=== PATIENT | male | born 1955 | race Caucasian/White ===

== ENCOUNTER 2022-07-31 00:44 | Day surgery (SDC) | payer MEDICARE, SELFPAY ==
[2022-07-18 12:24] VITALS: BMI 30.4
--- NOTE | 2022-07-30 13:30 | PM.HPGS ---
History of Present Illness History of Present Illness Consent: Risks, benefits, and alternatives have been discussed and questions answered. Patient agrees to proceed with procedure. Chief complaint: other fecal abnormalities Narrative: Len Iverson is a 67 year old male referred for colon cancer screening. Review of Systems Review of Systems: All systems reviewed & are unremarkable except as noted in HPI and below PMFSH Social History Social History Smoking status: Never smoker Alcohol intake: current Alcohol use details: 2 drinks wine monthly Substance use type: does not use Living arrangements: with family Spiritual care concerns: No Meds Home Medications and Allergies Home Medications Medication Instructions Recorded Confirmed Type lisinopril 20 mg tablet 20 mg PO DAILY 07/18/22 07/31/22 History Allergies Allergy/AdvReac Type Severity Reaction Status Date / Time No Known Allergies Allergy Verified 07/31/22 11:59 Exam Const: General: alert Orientation/consciousness: patient oriented x3 Resp: Auscultation: clear to auscultation bilaterally Cardio: Rhythm: regular rhythm GI: GI Palp: Yes Soft to palpation and No Tenderness to palpation present (GI) Neuro: General: patient oriented x3 Assessment and Plan Assessment and plan (1) Colon cancer screening: Code(s): Z12.11 - Encounter for screening for malignant neoplasm of colon Status: Acute Assessment and Plan: Colonoscopy with possible biopsy or polypectomy or cautery or injection of substances.
[2022-07-31 12:00] VITALS: BP 147/91; PULSE 71; RESP 20; TEMP 36.4; O2SAT 100
--- NOTE | 2022-07-31 12:04 | WPDANESEPPF ---
Anes - Initial Pre Proc Eval Procedure: Operation Date: 07/31/22 13:30 Proposed Procedures p Colonoscopy - Grabiel Zazueta MD Date/Time: 07/31/22 12:04 Surgeon: Grabiel Zazueta MD Pre Op Diagnosis: other fecal abnormalities Patient Data Age: 67 Gender: M Height: 1.85 m Weight: 104.7 kg Last Vital Signs Temp 97.5 F L 07/31/22 12:00 Pulse 71 07/31/22 12:00 Resp 20 07/31/22 12:00 BP 147/91 H 07/31/22 12:00 Pulse Ox 100 07/31/22 12:00 O2 Del Method Room Air 07/31/22 12:00 Allergies Allergy/AdvReac Type Severity Reaction Status Date / Time No Known Allergies Allergy Verified 07/31/22 11:59 Home Medications Medication Instructions Recorded Confirmed Type lisinopril 20 mg tablet 20 mg PO DAILY 07/18/22 07/31/22 History Patient hx anesthesia problems: none Family hx anesthesia problems: none Results Review: All pre-operative results and documents have been reviewed as part of the pre-operative evaluation. [facility] Social History Social History Smoking status: Never smoker Alcohol intake: current Alcohol use details: 2 drinks wine monthly Substance use type: does not use Living arrangements: with family Spiritual care concerns: No Anes - Eval Final PreProcedure Day of Procedure 07/31/22 12:04 Patient weight: obese Heart: regular rate and rhythm Lungs: clear to auscultation Airway: Mallampati scale class II Neurological: alert and oriented Last oral intake: >/= 8 hours ASA classification: II Emergent: no Anesthetic plan: proceed Anesthesia type and monitoring: general GIVS and standard monitoring Results Review: All pre-operative results and documents have been reviewed as part of the pre-operative evaluation. Informed Consent: The patient's anesthetic plan and its attendant risks and benefits were discussed with the patient/family/POA. Questions were solicited and answers provided to the satisfaction of the patient/family/POA.
[2022-07-31] MEDS: LACTATED RINGERS 1,000 ML 150 ML IV CONT (12:06)
[2022-07-31 12:54] VITALS: BP 123/75; PULSE 68; RESP 20; O2SAT 96
[2022-07-31 13:04] VITALS: BP 128/71; PULSE 64; RESP 20; O2SAT 96
[2022-07-31 13:14] VITALS: BP 131/86; PULSE 66; RESP 20; O2SAT 97
--- NOTE | 2022-07-31 13:15 | SUR.PHASEII ---
Addendum entered by Misty Connell RN 07/31/22 13:37: 1335: UPON DISCHARGE, PT STATES FEELING BETTER, ABLE TO SPEAK MORE EASILY WITH SOME HOARSENESS. Original Note: PT AWAKE AND ALERT, COMPLAINING OF BURNING IN HIS THROAT, ALSO STATES DIFFICULTLY SPEAKING, ABLE TO WHISPER, ABHAY EDMONDSON AT BEDSIDE, OBTAINED ORDERS FOR PEPCID IV PER DR FINN, ABHAY EDMONDSON ADMINISTERED MEDICATION, PT STATES THIS HAPPENS AT HOME ROUTINELY AFTER LAYING DOWN FOR PERIODS OF TIME, PT ABLE TO CLEAR THROAT, NO MUCOUS PRODUCTION, SPOUSE AT BEDSIDE. DR HARDEN NOTIFIED, NO NEW ORDERS. PT AND SPOUSE OK WITH GOING HOME, STATES THEY WILL FOLLOW UP IF SYMPTOMS CONTINUE.
[2022-07-31] MEDS: FAMOTIDINE 20 MG/2 ML VIAL IV PUSH (13:18)
== END 2022-07-31 13:35 | disposition home or self-care (01) ==
PROVIDERS: PCP Internal Medicine; Visit Provider Internal Medicine Gastroenterology
PROC: 0DJD8ZZ Inspection of Lower Intestinal Tract, Via Natural or Artificial Opening Endoscopic (ICD-10-PCS; CPT 45378; principal; 2022-07-31 13:30)
DX: Z12.11 Encounter for screening for malignant neoplasm of colon (principal); K62.1 Rectal polyp; K57.30 Diverticulosis of large intestine without perforation or abscess without bleeding; R19.5 Other fecal abnormalities; E66.9 Obesity, unspecified; Z68.30 Body mass index [BMI] 30.0-30.9, adult
CPT/HCPCS: 45380; 88305; J2704; J7120

== ENCOUNTER 2024-10-21 14:29 | Outpatient (CLI) | payer MEDICARE, SELFPAY ==
--- NOTE | ~2024-10-21 | CT_ITS ---
CT of the Abdomen and Pelvis: Indication: Hematuria Technique: 2.5 mm axial scans were obtained through the abdomen and pelvis following intravenous adm inistration of 100 cc of Omnipaque 350. Dose reduction technique was used on this scan by utilizing a utomated exposure control and iterative reconstruction technique. The dose-length product (DLP) was 1 020.43 mGy-cm. Findings: Scans through the lung bases are unremarkable. The liver, spleen, pancreas, gallbladder, adrenals and kidneys are within normal limits. No evidence of aortic aneurysm. No lymphadenopathy. No bowel obstruction or bowel wall thickening. There is no evidence to suggest acute appendicitis. Images through the pelvis were performed. Urinary bladder grossly unremarkable. Prostate gland is enl arged. No pelvic mass seen. No ascites. Impression: Enlarged prostate gland. No other significant findings identified. Collapsed urinary bladder somewhat limits evaluation. Reviewed, dictated and finalized at [facility]. Impression: Enlarged prostate gland. No other significant findings identified. Collapsed urinary bladder somewhat li mits evaluation.
--- OUTSIDE RECORDS SUMMARY | 2024-10-21 14:35 | XMS_ITS | Referral Summary ---
Author Organization [facility] Address [address] [place] [address] Care Team Providers Care Pantry Worker Name Role Phone Len Chiu MD Unavailable [phone] Cristofer Lock MD Primary Care Provider Encounters Date Type Department Care Team Description 10/18/2024 Results Follow-Up [facility] at [address] [phone] Yudelka Rogel PA Urine culture Urine, clean voided 10/17/2024 9:57 AM CDT - 10/17/2024 11:59 PM CDT Hospital Encounter [address] [address] Burning with urination Discharge Disposition: Discharge to home or self care 10/17/2024 9:45 AM CDT Office Visit [facility] at [address] [phone] Melissa Meza NP Burning with urination (Primary Dx) 09/17/2024 Telephone [facility] Sports Medicine [address] [facility] [address] [address] Goldie White PA 09/14/2024 8:30 AM CDT Ancillary Procedure [facility] Imaging at [address] [phone] Acute pain of both knees 09/14/2024 8:25 AM CDT Ancillary Procedure [facility] [place] [address] [place] [phone] Acute pain of both knees 09/14/2024 8:30 AM CDT Office Visit [facility] Orthopedic and Sports Medicine [address] [place] [phone] Goldie White PA Chronic pain of both knees (Primary Dx); Primary osteoarthritis of both knees from Last 3 Months Allergies No known active allergies Medications lisinopriL (PRINIVIL,ZESTR IL) 20 mg tablet 1 tablet (20 mg total) daily Active aspirin 325 mg enteric coated tablet 1 tablet (325 mg total) nightly Active rosuvastatin (CRESTOR) 10 mg tablet Take 1 tablet (10 mg total) by mouth daily Active cephalexin (KEFLEX) 500 mg capsuleIndicati ons:Urinary Tract/Genitouri nary Infection Take 1 capsule (500 mg total) by mouth 2 (two) times a day for 5 days 10 capsule 10/17/2024 5 Active Active Problems Problem Noted Date Diagnosed Date Hyperlipidemia LDL goal <100 04/27/2024 Basal cell carcinoma (BCC) of skin of nose 02/07 PAC (premature atrial contraction) 12/27/2022 Obesity (BMI 30.0-34.9) 12/27/2022 Essential (primary) hypertension 12/27/2022 Other atrophic disorders of skin 10/08/2021 Overview (10/08/2021): Added automatically from request for surgery [id number] Lesion of skin of cheek 10/08/2021 Overview (10/08/2021): Added automatically from request for surgery [id number] Skin lesion of left arm 10/08/2021 Overview (10/08/2021): Added automatically from request for surgery [id number] Skin lesion of right leg 10/08/2021 Overview (10/08/2021): Added automatically from request for surgery [id number] Neoplasm of uncertain behavior of skin Overview (09/29/2020): Added automatically from request for surgery [id number] Social History Tobacco Use Types Packs/Day Years Used Date Smoking Tobacco: Never Cigarettes Passive Smoke Exposure: Past Smokeless Tobacco: Never Tobacco Cessation:Counseling Given: Not Answered AUDIT-C Answer Date Recorded Q1: How often do you have a drink containing alc ohol? Monthly or less 02/11/2023 Q2: How many drinks containi ng alcohol do you have on a typical day when you are drinking? 1 or 2 02/11/2023 Q3: How often do you have si x or more drinks on one occasion? Never 02/11/2023 Personal Safety Answer Date Recorded Have you ever been in or are you currently in a harmful physical or emotional relationship or is someone making you feel afraid or unsafe? 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 Gender Identity Not on file Sexual Orientation Not on file Last Filed Vital Signs Vital Sign Reading Time Taken Comments Blood Pressure 115/74 10/17/2024 9:37 AM CDT Pulse 85 10/17/2024 9:37 AM CDT Temperature 36.9 C (98.4 F) 10/17/2024 9:37 AM CDT Respiratory Rate 18 10/17/2024 9:37 AM CDT Oxygen Saturation 98% 10/17/2024 9:37 AM CDT Inhaled Oxygen Concentration - - Weight 108.5 kg (239 lb 3.2 oz) 10/17/2024 9:37 AM CDT Height 182.9 cm (6') 10/17/2024 9:37 AM CDT Body Mass Index 32.44 10/17/2024 9:37 AM CDT Plan of Treatment Not on file Procedures Procedure Name Priority Date/Time Associated Diagnosis Comments URINE CULTURE Routine 10/17/2024 9:57 AM CDT Burning with urination POCT URINALYSIS DIPSTICK Routine 10/17/2024 9:46 AM CDT Burning with urination XR PELVIS 1 OR 2 VIEWS Schedule Routine, Read Routine (OP Routine) 09/14/2024 8:35 AM CDT Acute pain of both knees XR KNEE BILATERAL 4 OR MORE VIEWS Schedule Routine, Read Routine (OP Routine) 09/14/2024 8:35 AM CDT Acute pain of both knees LARGE JOINT ARTHROCENTESIS Routine 09/14/2024 8:30 AM CDT Chronic pain of both knees Primary osteoarthritis of both knees from Last 3 Months Results * Urine culture Urine, clean voided (10/17/2024 9:57 AM CDT) Report Final Report: Less than 100,000 colonies/mL (clinically insignificant growth based on current clinical standards) Comment:Testing performed by : [facility], [address] [place]., [address] Organism (CLINICALLY INSIGNIFICANT GROWTH TALYA Urine, clean voided 10/17/2024 9:57 AM CDT 10/17/2024 4:00 PM CDT Narrative TALYA - 10/18/2024 4:55 PM CDT Please run sensitivity. Testing performed by [facility] Microbiology Laboratory ([phone]) us Melissa Meza NP LAB MICROBIOLOGY - GENERAL ORD ERABLES Final Result [facility] [address] [address] Department [place] [address] * (ABNORMAL) POCT urinalysis dipstick (10/17/2024 9:46 AM CDT) Color, Urine, POC Dark Yellow Clarity, ur, POC Cloudy(A) Clear Glucose, ur, POC Negative Negative Bilirubin, ur, POC Small(A) Negative Ketones, ur, POC 15.(A) Negative Specific [place], POC 1.030 1.003 - 1.030 Blood, ur, POC Non-hemolyze d, moderate(A) Negative pH, ur, POC 6.0 5.0 - 8.0 Protein, ur, POC 100.(A) Negative Urobilinogen, urine, POC 0.2 0.2 - 1.0 mg/dL Nitrite, ur, POC Negative Negative Leukocytes, ur, POC Negative Negative Lot Number [id number] Urine 10/17/2024 9:46 AM CDT Melissa Meza NP POINT OF CARE TEST ORDERABLES Final Result * XR Pelvis 1 or 2 Views (09/14/2024 8:35 AM CDT) Anatomical Region Laterality Modality Body, Pelvis N/A Digital Radiogra phy Narrative 10/08/2024 7:17 AM CDT X-ray of the pelvis viewed and interpreted. There is no evidence of fracture, subluxation, or bony abnormality. Degenerative changes seen of the bilateral femoral acetabular joints with joint space narrowing and osteophyte formation. Goldie SHINE IMG XR PROCEDURES Final Result * XR Knee Bilateral 4 or More Views (09/14/2024 8:35 AM CDT) Anatomical Region Laterality Modality Lower Extremities, Knee Digital Radiography Narrative 10/08/2024 7:18 AM CDT Radiographs of the bilateral knees reviewed interpreted. No acute fractures or destructive osseous lesions. Tricompartmental degenerative changes noted with windswept deformity. [id number]-rv-[id number] changes medial compartment right knee with varus deformity and iufk-ew-dpaw changes lateral compartment of the left knee with valgus deformity. Goldie SHINE IMG XR PROCEDURES Final Result from Last 3 Months Insurance [employer] MEDICARE Care Teams Pantry Worker Relationship Specialty Start Date End Date Cristofer Lock MD [address] [place] [address] PCP - General Internal Medicine 12/25/22 Len Chiu MD Consulting Physician Plastic Surgery 10/10/20
--- OUTSIDE RECORDS SUMMARY | 2024-10-21 14:35 | XMS_ITS | Clinical Summary ---
Author Organization [facility] Address [address] [place] [address] Care Team Providers Care Director Of Primary Care Name Role Phone Len Chiu MD Unavailable [phone] Cristofer Lock MD Primary Care Provider Allergies No known active allergies Medications lisinopriL [...] (10/08/2021): Added automatically from request for surgery [id number] Lesion of skin of cheek 10/08/2021 Overview (10/08/2021): Added automatically from request for surgery [id number] Skin lesion of left arm 10/08/2021 Overview (10/08/2021): Added automatically from request for surgery [id number] Skin lesion of right leg 10/08/2021 Overview (10/08/2021): Added automatically from request for surgery [id number] Neoplasm of uncertain behavior of skin Overview (09/29/2020): Added automatically from request for surgery [id number] Encounters Date Type Department Care Team Description 10/18/2024 Results Follow-Up [facility] at [address] [phone] Yudelka Rogel PA Urine culture Urine, clean voided 10/17/2024 9:57 AM CDT - 10/17/2024 11:59 PM CDT Hospital Encounter [address] [address] Burning with urination Discharge Disposition: Discharge to home or self care 10/17/2024 9:45 AM CDT Office Visit [facility] at [address] [phone] Melissa Meza NP Burning with urination (Primary Dx) 09/17/2024 Telephone [facility] Orthopedics and Sports Medicine [address] [facility] [address] [place] [phone] Goldie White PA 09/14/2024 8:30 AM CDT Ancillary Procedure [facility] Imaging at [address] [phone] Acute pain of both knees 09/14/2024 8:30 AM CDT Office Visit [facility] Orthopedic [facility] Sports Medicine [address] [place] [phone] Goldie White PA Chronic pain of both knees (Primary Dx); Primary osteoarthritis of both knees 09/14/2024 8:25 AM CDT Ancillary Procedure [facility] Imaging at [address] [phone] Acute pain of both knees from Last 3 Months Surgical History Surgery Date Site/Laterality Comments SKIN LESION EXCISION 10/10/2020 Excision skin lesion back SKIN LESION EXCISION 10/10/2020 Excision skin lesion upper neck SKIN LESION EXCISION 10/10/2020 Excision skin lesion lower neck SKIN LESION EXCISION 10/10/2020 Right Excision skin lesion right arm KNEE ARTHROSCOPY W/ LATERAL RELEASE knee 1983 Right VASECTOMY 1977 Medical History Medical History Date Comments Cancer (HCC) basal cell Hypertension lisinopril 20 mg daily Family History Medical History Relation Name Comments Hypertension Brother 1 Hypertension Brother 2 Esophageal cancer Brother 3 liver faiure Brother 4 Hypertension Father Hypertension Mother Relation Name Status Comments Brother 1 Alive Brother 2 Alive Brother 3 Brother 4 Father Mother Sister 1 Alive Sister 2 Sister 3 Social History Tobacco Use Types Packs/Day Years [...] on file 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 Gender Identity Not on file Sexual Orientation Not on file Obstetrics History Last Filed Vital Signs Vital Sign Reading [...] 10/17/2024 9:37 AM CDT Plan of Treatment Health Maintenance Due Date Last Done Comments Colon Cancer Screening-Colonoscopy 1955 Depression Screening 1955 Hepatitis C Screening 1953 Hepatitis B Screening 1971 Zoster Vaccine (1 of 2) 2003 Well Visit 65+ 2018 Pneumococcal vaccine 65+ (2 of 2 - PPSV23) 01/28/2019 01/28/2018 DTaP/Tdap/Td Vaccine (2 - Td or Tdap) 02/22/2023 02/22/2013 Fall Risk Assessment 02/26/2024 02/25/2023 Influenza Vaccine (#1) 2024 , 02/22/2019, 01/28/2018, Additional history exists Procedures Procedure Name Priority Date/Time Associated Diagnosis [...] current clinical standards) Comment:Testing performed by : [facility], [address] [facility], [place]., [address] Organism (CLINICALLY INSIGNIFICANT GROWTH TALYA TRAN Urine, clean voided 10/17/2024 9:57 AM CDT 10/17/2024 4:00 PM CDT Narrative TALYA TRAN - 10/18/2024 4:55 PM CDT Please run sensitivity. Testing performed by [facility] Microbiology Laboratory ([phone]) Melissa Meza NP LAB MICROBIOLOGY - GENERAL ORD ERABLES Final Result TALYA TRAN [address] [address] Department [place] [address] * (ABNORMAL) POCT urinalysis dipstick (10/17/2024 9:46 AM CDT) Color, Urine, POC Dark Yellow Clarity, ur, POC Cloudy(A) Clear Glucose, ur, POC Negative Negative Bilirubin, ur, POC Small(A) Negative Ketones, ur, POC 15.(A) Negative Specific [place], POC 1.030 1.003 - 1.030 Blood, ur, POC Non-hemolyze d, moderate(A) Negative pH, ur, POC 6.0 5.0 - 8.0 Protein, ur, POC 100.(A) Negative Urobilinogen, urine, POC 0.2 0.2 - 1.0 mg/dL Nitrite, ur, POC Negative Negative Leukocytes, ur, POC Negative Negative Lot Number [id number] Urine 10/17/2024 9:46 AM CDT us Melissa Meza NP POINT OF CARE TEST [...] Tricompartmental degenerative changes noted with windswept deformity. Iffu-qe-omkn changes medial compartment right knee with varus deformity and gggd-bp-fgjp changes lateral compartment of the left knee with valgus deformity. Goldie SHINE IMG XR PROCEDURES Final Result from Last 3 Months Insurance [facility] MEDICARE AET[employer] MEDICARE Care Teams Director Of Primary Care Relationship Specialty Start Date End Date Cristofer Lock MD [address] [facility] [address] [place] [address] PCP - General Internal Medicine 12/25/22 Len Chiu MD Consulting Physician Plastic Surgery 10/10/20
--- OUTSIDE RECORDS SUMMARY | 2024-10-21 14:35 | XMS_ITS | Encounter Summary ---
Author Organization [facility] Address [address] [facility] [place] [address] Care Team Providers Care Panel Sewer Name Role Phone Cristofer Lock MD Primary Care Provider Encounter Details Date Type Department Care Team (Late st Contact Info) Description 12/05/2023 Lab Requisition [facility] [address] [facility] [place] [phone] Kirti Ruby, PA [address] [place] [address] Neoplasm of uncertain behavior of skin Social History Tobacco Use Types Packs/Day Years Used Date Smoking Tobacco: Never Assessed Sex and Gender Information Value Date Recorded Sex Assigned at Not on file Legal Sex Male 11:09 AM CDT Gender Identity Not on file Sexual Orientation Not on file documented as of this encounter Plan of Treatment Not on file documented as of this encounter Visit Diagnoses Diagnosis Neoplasm of uncertain behavior of skin documented in this encounter Care Teams Panel Sewer Relationship Specialty Start Date End Date Cristofer Lock MD [address] [place] [phone] PCP - General 08/14/22 documented as of this encounter
--- OUTSIDE RECORDS SUMMARY | 2024-10-21 14:35 | XMS_ITS | Clinical Summary ---
Author Organization [facility] Address [address] [place] [address] Care Team Providers Care Machine Stone Polisher Name Role Phone Cristofer Lock MD Primary Care Provider Source Comments [facility],non-[facility] Affiliates and Associated Physician Practices is amultiple site organization consisting of ambulatory clinics and hospital sitesin [place], [place], [place] and [place]. This disclosure is being madepursuant to the Care Everywhere program and may not contain all information available regarding this patient. Last updated 18.[facility] [employer] Social History Tobacco Use Types Packs/Day Years Used Date Smoking Tobacco: Never Assessed Sex and Gender Information Value Date Recorded Sex Assigned at Not on file Legal Sex Male 11:09 AM CDT Gender Identity Not on file Sexual Orientation Not on file Plan of Treatment Health Maintenance Due Date Last Done Comments COLOGUARD (AGES 45-75) - COL ON CA SCREENING 1955 COLON MONITORING 1953 COLONOSCOPY - COLON CA SCREENING 1953 CT COLONOGRAPHY - COLON CA SCREENING 1955 Colorectal Cancer Screening 1953 FIT - COLON CA SCREENING 1953 FLEX SIG - COLON CA SCREENING 1953 LIPID TESTING 1953 HEPATITIS C SCREENING 01/19/1971 DTAP/TDAP/TD VACCINES (1 - Tdap) 01/24/1972 PNEUMOCOCCAL VACCINE 50+ (1 of 1 - PCV) 2003 ZOSTER VACCINE (1 of 2) 2003 COVID-19 VACCINE ( - 2023-2 5 season) 2023 DEPRESSION SCREENING 04/14/2024 MEDICARE AWV CALENDAR YEAR 2024 INFLUENZA VACCINE (#1) 2024 Respiratory Syncytial Virus (RSV) Vaccine Pt: or over 60 yrs (1 - 1-dose 75+ series) 01/24/2028 HEPATITIS B VACCINE Aged Out No longe r eligible based on patient's age to complete this topic HIB VACCINE Aged Out No longer eligi ble based on patient's age to complete this topic HPV VACCINE Aged Out No longer eligi ble based on patient's age to complete this topic MENINGOCOCCAL (Group B) VACC INE SHARED DECISION-MAKING Aged Out No longer eligibl e based on patient's age to complete this topic MENINGOCOCCAL GROUPS A/C/Y/W VACCINE Aged Out No longer eligible b ased on patient's age to complete this topic Insurance AETNA MEDICARE ADV Care Teams Machine Stone Polisher Relationship Specialty Start Date End Date Cristofer Lock MD [address] [place] [address] [address] [place] [address] PCP - General 08/14/22
--- OUTSIDE RECORDS SUMMARY | 2024-10-21 14:35 | XMS_ITS | Encounter Summary ---
Author Organization [facility] Care Team Providers Care Field Supervisor Name Role Phone Cristofer Lock MD Primary Care Provider Len Chiu MD Unavailable [phone] Cristofer Lock MD Primary Care Provider Encounter Details Date Type Department Care Team (Latest Contact Info) Description 09/13/2016 Orders Only [facility] ProviderTucker MD [address] [place] [id number] Social History Tobacco Use Types Packs/Day Years Used Date Smoking Tobacco: Never Assessed Sex and Gender Information Value Date Recorded Sex Assigned at Not on file 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 Historical Provider Final Res ult * PROCEDURE - RESULT (08/23/2016 12:00 AM CDT) Narrative 08/23/2016 12:00 AM CDT Ordered by an unspecified provider. us Historical Provider Final Res ult documented in this encounter Visit Diagnoses Not on filedocumented in this encounter Care Teams Field Supervisor Relationship Specialty Start Date End Date Cristofer Lock MD [address] [address] PCP - General Internal Medicine 09/28/20 12/24/22 Cristofer Lock MD [address] [address] PCP - General Internal Medicine 12/25/22 Len Chiu MD [address] [address] Consulting Physician Plastic Surgery 10/10/20 documented as of this encounter
--- OUTSIDE RECORDS SUMMARY | 2024-10-21 14:35 | XMS_ITS | Encounter Summary ---
Author Organization [facility] Address [address] [place] [address] Care Team Providers Care Software Engineer Kernel Name Role Phone Len Chiu MD Unavailable [phone] Cristofer Lock MD Primary Care Provider Encounter Details Date Type Department Care Team (Late st Contact Info) Description 10/18/2024 Results Follow-Up [facility] Con[facility]ient Care at [address] [address] Yudelka Rogel PA [address] [place] [address] [address] [place] [address] Urine culture Urine, clean voided Social History Tobacco Use Types Packs/Day Years Used Date Smoking Tobacco: Never Cigarettes Passive Smoke Exposure: Past Smokeless Tobacco: Never AUDIT-C Answer Date Recorded Q1: How often [...] on file 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
--- OUTSIDE RECORDS SUMMARY | 2024-10-21 14:35 | XMS_ITS | Encounter Summary ---
Author Organization [facility] Address [address] [place] [address] Care Team Providers Care Commission For [employer] Blind Director Name Role Phone Cristofer Lock MD Primary Care Provider [phone] Encounter Details Date Type Department Care Team (Late st Contact Info) Description 12/05/2023 Lab Requisition [facility] - DermPath Lab [address] [place] [phone] William Moreno MD [facility] DERMATOLOGY [address] [place] [phone] Neoplasm of uncertain behavior of skin Social [...] Procedure Name Priority Date/Time Associated Diagnosis Comments DERMATOPATHOLOGY Routine 12/05/2023 12:0 0 AM CDT Neoplasm of uncertain behavior of skin documented in this encounter Results * DERMATOPATHOLOGY (12/05/2023 12:00 AM CDT) Case Report Dermatopathology Report Case: [id number] Authorizing Provider: William Moreno MD Collected: 12/05/2023 12:00 AM Ordering Location: [facility] - Received: 12/08/2023 10:57 AM DermPath Lab Pathologist: Sridevi Avery MD Specimens: A) - Skin, left nasolabial fold B) - Skin, right posterior upper arm 1:04 PM T DERMATOPATHOLOGY LABORATORY Final Diagnosis Specimen A. 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 SKIN, right posterior upper arm: BASAL CELL CARCINOMA, NODULAR TYPE (C44.612) 1:04 PM CDT DERMATOPATHOLOGY LABORATORY at 1304 CDT Clinical History A-B: Neoplasm of uncertain behavior vs BCC. 1:04 PM CDT DERMATOPATHOLOGY LABORATORY Gross Description Specimen A: Received is one formalin filled container labeled with the patient's name and designated left nasolabial fold. The specimen consists of a shave biopsy measuring 6x5x2 mm. Jar 0. Specimen B: Received is one formalin filled container labeled with the patient's name and designated right posterior upper arm. The specimen consists of a shave biopsy measuring 78f95p6 mm. Jar 0. 1:04 PM CDT DERMATOPATHOLOGY LABORATORY Microscopic Description Specimen A. SKIN, left nasolabial fold: Within the dermis there are aggregates of basaloid cells with a high nuclear to cytoplasmic ratio and peripheral palisading. Specimen B. SKIN, right posterior upper arm: Within the dermis there are aggregates of basaloid cells with a high nuclear to cytoplasmic ratio and peripheral palisading. 1:04 PM T DERMATOPATHOLOGY LABORATORY Disclaimer An external and internal positive and negative controls are appropriate for the histochemical, immunohistochemical and immunofluorescence stain(s) in this case (if any), except where stated explicitly. The performance characteristics of the stain(s) cited in this report were developed and its performance characteristic determined by the Dermatopathology Laboratory at [facility], directed by Dr. Rebekah Peters. These tests need not be, and therefore are not, approved by the [place] Food and Drug Administration. The tests are used for clinical purposes. Billing Codes Specimen Charges Stain Charges 21221 63395 1 1 1:04 PM CDT DERMATOPATHOLOGY LABORATORY Embedded Images 1:04 PM CDT DERMATOPATHOLOGY LABORATORY Pathology/Cytology TISSUE SPECIMEN FROM SKIN / Unknown 12/05/2023 12/08/2023 10:57 AM CDT Miscellaneous samples (specimen) TISSUE SPECIMEN FROM SKIN / Unknown 12/05/2023 12/08/2023 10:57 AM CDT us William Moreno MD LAB - PATHOLOGY/CYTOLOGY AMYE RICHIE Final Result DERMATOPATHOLOGY LABORATORY [facility] - Department of Dermatology [facility] [address] [place] [address], [address] [phone] documented in this encounter Visit Diagnoses Diagnosis Neoplasm of uncertain behavior of skin documented in this encounter Care Teams Commission For [employer] Blind Director Relationship Specialty Start Date End Date Cristofer Lock MD [facility] [phone] PCP - General 08/14/22 documented as of this encounter
[2024-10-21 14:58] LABS: Estimated Glomerular Filt Rate 50
== END 2024-10-21 14:30 | disposition home or self-care (01) ==
PROVIDERS: PCP Internal Medicine; Visit Provider Internal Medicine
DX: N40.0 Benign prostatic hyperplasia without lower urinary tract symptoms (principal); N32.89 Other specified disorders of bladder; R31.29 Other microscopic hematuria
CPT/HCPCS: 74177; Q9967

== ENCOUNTER 2025-03-24 01:16 | Day surgery (SDC) | payer MEDICARE, SELFPAY ==
[2025-03-23 12:28] VITALS: BMI 31.1
[2025-03-24] VITALS (14 sets, daily range): BP systolic 101–137; BP diastolic 58–87; PULSE 47–70; RESP 15–20; TEMP 36.1; O2SAT 96–100; BMI 29.9
--- OUTSIDE RECORDS SUMMARY | 2025-03-24 01:18 | XMS_ITS | Clinical Summary ---
Author Organization [facility] Address [address] [place] [address] Care Team Providers Care Heavy Rail Train Operator Name Role Phone Cristofer Lock MD Primary Care Provider [phone] Source Comments [facility],non-[facility] Affiliates and Associated Physician Practices is amultiple site organization consisting of ambulatory clinics and hospital sitesin [place], [place] and [place]. This disclosure is being madepursuant to the Care Everywhere program and may not contain all information available regarding this patient. Last updated 18.[employer] Social History Tobacco Use Types Packs/Day Years [...] 2003 ZOSTER VACCINE (1 of 2) 2003 DEPRESSION SCREENING 04/14/2024 MEDICARE AWV CALENDAR YEAR 2024 COVID-19 VACCINE ( - 2024-2 6 season) 2024 INFLUENZA VACCINE (#1) 2024 Respiratory Syncytial [...] topic Insurance [employer] MEDICARE ADV Care Teams Heavy Rail Train Operator Relationship Specialty Start Date End Date Cristofer Lock MD [address] [place] [address] [address] [place] [address] PCP - General 08/14/22
--- OUTSIDE RECORDS SUMMARY | 2025-03-24 01:18 | XMS_ITS | Encounter Summary ---
Author Organization [facility] Care Team Providers Care Heat Welder Plastics Name Role Phone Cristofer Lock MD Primary Care Provider Len Chiu MD Unavailable [phone] Cristofer Lock MD Primary Care Provider Alex Kruse OT Unavailable Unavailable Encounter Details Date Type Department Care Team (Latest Contact Info) Description 09/13/2016 Orders Only [facility] ProviderTucker MD [address] [place] [address] Social History Tobacco Use Types Packs/Day Years Used Date Smoking Tobacco: Never Assessed Sex and Gender Information Value Date Recorded Sex Assigned at Not on file 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
--- OUTSIDE RECORDS SUMMARY | 2025-03-24 01:18 | XMS_ITS | Encounter Summary ---
Author Organization [facility] Address [address] [place] [address] Care Team Providers Care Reclamation Worker Name Role Phone Len Chiu MD Unavailable Cristofer Lock MD Primary Care Provider Alex Kruse OT Unavailable Unavailable Encounter Details Date Type Department Care Team (Latest Contact Info) Description 03/09/2025 Results Follow-Up [facility] Cardiology [address] [place] [address] Vinny Rosado MD [address] [facility] [address] [facility] [address] [place] [address] Transthoracic Echo (TTE) Complete W Doppler/CF, NM MPI SPECT (Rest and/or Stress) Multiple Studies Social History Tobacco Use Types Packs/Day Years Used Date Smoking Tobacco: Never Passive Smoke Exposure: Past Smokeless Tobacco: Never Alcohol Use Standard Drinks/Week Comments Never 0 (1 standard drink = 0.6 oz pur e alcohol) AUDIT-C Answer Date Recorded Q1: How often do you have a drink containing alcohol? Never 03/09/2025 Q2: How many drinks containi ng alcohol do you have on a typical day when you are drinking? Patient does not drink Q3: How often do you have si x or more drinks on one occasion? Never 03/09/2025 Personal Safety Answer Date Recorded Have you ever been in or are you currently in a harmful physical or emotional relationship or is someone making you feel afraid or unsafe? 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 Never 03/09/2025 9:13 AM Whitney Vazquez RN Q2: How many drinks containing alcohol do you have on a typical day when you are drinking? Patient does not drink 03/09/2025 9:13 AM Whitney Vazquez RN Q3: How often do you have six or more drinks on one occasion? Never 03/09/2025 9:13 AM Whitney Vazquez RN documented as of this encounter Plan of Treatment Not on file documented as of this encounter Visit Diagnoses Not on filedocumented in this encounter Care Teams Reclamation Worker Relationship Specialty Start Date End Date Cristofer Lock MD [address] [facility] [address] [place] [address] PCP - General Internal Medicine 12/25/22 Len Chiu MD Consulting Physician Plastic Surgery 10/10/20 Alex Kruse OT Occupational Therapist Occupational Therapy 03/02/25 documented as of this encounter
--- OUTSIDE RECORDS SUMMARY | 2025-03-24 01:18 | XMS_ITS | Encounter Summary ---
Author Organization [facility] Address [address] [place] [address] Care Team Providers Care Crude Oil Driver Name Role Phone Cristofer Lock MD Primary Care Provider [phone] Encounter Details Date Type Department Care Team (Late st Contact Info) Description 12/05/2023 Lab Requisition [facility] - DermPath Lab [address] [facility] [place] [id number] Kirti Ruby, PA [address] [place] [address] Neoplasm of uncertain behavior of skin Social [...] skin documented in this encounter Care Teams Crude Oil Driver Relationship Specialty Start Date End Date Cristofer Lock MD [address] [place] [phone] PCP - General 08/14/22 documented as of this encounter
--- OUTSIDE RECORDS SUMMARY | 2025-03-24 01:18 | XMS_ITS | Clinical Summary ---
Author Organization [facility] Address [address] [place] [address] Care Team Providers Care Optometric Technologist Name Role Phone Len Chiu MD Unavailable [phone] Cristofer Lock MD Primary Care Provider Alex Kruse OT Unavailable Unavailable Allergies No known active allergies Medications lisinopriL (PRINIVIL,ZESTR IL) 20 mg tablet 1 tablet (20 mg total) daily Active aspirin 325 mg enteric coated tablet Take 2 tablets (650 mg total) by mouth nightly Active rosuvastatin (CRESTOR) 10 mg tablet Take 1 tablet (10 mg total) by mouth daily Active Active Problems Problem Noted Date Diagnosed Date PVC (premature ventricular contraction) 03/04/20 25 Pre-operative cardiovascular examination 025 PAF (paroxysmal atrial fibrillation) 03/04/2025 Post-traumatic osteoarthritis of left knee 02/17 Hyperlipidemia LDL goal <100 04/27/2024 Basal cell carcinoma (BCC) of skin of nose 02/07 PAC (premature atrial contraction) 12/27/2022 Obesity (BMI 30.0-34.9) 12/27/2022 Essential (primary) hypertension 12/27/2022 Other atrophic disorders of skin 10/08/2021 Overview (10/08/2021): Added automatically from request for surgery [id number] Lesion of skin of cheek 10/08/2021 Overview (10/08/2021): Added automatically from request for surgery [id number] Skin lesion of left arm 10/08/2021 Overview (10/08/2021): Added automatically from request for surgery [id number] Skin lesion of right leg 10/08/2021 Overview (10/08/2021): Added automatically from request for surgery [id number] Neoplasm of uncertain behavior of skin Overview (09/29/2020): Added automatically from request for surgery [id number] Encounters Date Type Department Care Team Description 03/09/2025 Telephone [facility] Cardiology [address] [place] [address] [place] [phone] Chepe Frausto MD 03/09/2025 Results Follow-Up [place] [address] [place] [phone] Chepe Frausto MD Transthoracic Echo (TTE) Complete W Doppler/CF, NM MPI SPECT (Rest and/or Stress) Multiple Studies 03/08/2025 10:15 AM [employer]CH[employer]ING AGENT Ancillary Procedure [facility] Cardiology at [address] [place] [address] PAF (paroxysmal atrial fibrillation); Pre-operative cardiovascular examination; PVC (premature ventricular contraction) 03/04/2025 2:00 PM [employer]CH[employer]ING AGENT Ancillary Procedure [facility] Cardiology [address] [place] [address] [place] [phone] PAF (paroxysmal atrial fibrillation); Essential (primary) hypertension 03/04/2025 11:30 AM [employer]CH[employer]ING AGENT Office Visit [facility] Cardiology [address] [place] [address] [place] [phone] Chepe Frausto MD PAF (paroxysmal atrial fibrillation) (Primary Dx); Pre-operative cardiovascular examination; Hyperlipidemia LDL goal <100; Essential (primary) hypertension; PVC (premature ventricular contraction) 02/18/2025 Orders Only [facility] Orthopedics and Sports Medicine [address], [place] [phone] Rajinder Whittaker MD Post-traumatic osteoarthritis of left knee (Primary Dx) 02/14/2025 9:45 AM [employer] FOR [employer]ALE PURCHASING AGENT Lab [facility] [address] [place] [address] Pre-operative exam 02/14/2025 9:30 AM [employer]ALE PURCHASING AGENT - 02/14/2025 11:59 PM [employer] PURCHASING AGENT Hospital Encounter [facility] Cardiology [address] [place] [address] Pre-operative exam Discharge Disposition: Discharge to home or self care 02/14/2025 9:29 AM [employer]CH[employer]ING AGENT - 02/14/2025 11:59 PM [employer] PURCHASING AGENT Hospital Encounter [facility] Imaging [facility] [address] [place] [address] Pre-operative exam Discharge Disposition: Discharge to home or self care from Last 3 Months Surgical History Surgery Date Site/Laterality Comments SKIN LESION EXCISION 10/10/2020 Excision skin lesion back SKIN LESION EXCISION 10/10/2020 Excision skin lesion upper neck SKIN LESION EXCISION 10/10/2020 Excision skin lesion lower neck SKIN LESION EXCISION 10/10/2020 Right Excision skin lesion right arm KNEE ARTHROSCOPY W/ LATERAL RELEASE knee 1983 Right VASECTOMY 1976 COLONOSCOPY ELBOW FRACTURE SURGERY Right as a child Medical History Medical History Date Comments Cancer (HCC) basal cell Hypertension lisinopril 20 mg daily GERD (gastroesophageal reflux disease) Atrial fibrillation (HCC) Hyperlipidemia Family History Medical History Relation Name Comments [...] Tobacco: Never Tobacco Cessation:Counseling Given: Not Answered Alcohol Use Standard Drinks/Week Comments Never 0 [...] on file Legal Sex Male 8:31 PM [employer]CH[employer]ING [employer]ENT Gender Identity Not on file Sexual Orientation Not on file Last Filed Vital Signs Vital Sign Reading Time Taken Comments Blood Pressure 132/86 03/04/2025 11:36 AM [employer]CH[employer]ING [employer]ENT Pulse 56 03/04/2025 11:36 AM [employer]CH[employer]ING [employer]ENT Temperature 36.9 C (98.4 F) 10/17/2024 9:37 AM CDT Respiratory Rate 18 10/17/2024 9:37 AM CDT Oxygen Saturation 99% 03/04/2025 11:36 AM [employer]CH[employer]ING AGENT Inhaled Oxygen Concentration - - Weight 104.8 kg (231 lb) 03/04/2025 11:36 AM [employer]ALE PURCHASING AGENT Height 182.9 cm (6') 03/04/2025 11:36 AM [employer]CHASING AGENT Body Mass Index 31.33 03/04/2025 11:36 AM [employer] FOR [employer]CHASING AGENT Plan of Treatment Health Maintenance Due Date Last Done Comments Colon Cancer Screening-Colonoscopy 1955 Depression Screening 1955 Hepatitis C Screening 1955 Hepatitis B Screening 1971 Zoster Vaccine (1 of 2) 2003 Well Visit 65+ 2018 Pneumococcal vaccine 65+ (2 of 2 - PCV20 or PCV21) 01/28/2019 01/28/2018 DTaP/Tdap/Td Vaccine (2 - Td or Tdap) 02/22/2023 02/22/2013 Fall Risk Assessment 02/26/2024 02/25/2023 Influenza Vaccine (#1) 2024 0, 02/22/2019, 01/28/2018, Additional history exists Procedures Procedure Name Priority Date/Time Associated Diagnosis Comments NM MPI SPECT (REST AND/OR STRESS) MULTIPLE STUDIES Schedule Routine, Read Routine (OP Routine) 03/08/2025 11:17 AM [employer]CHASING AGENT PAF (paroxysmal atrial fibrillation) Pre-operative cardiovascular examination PVC (premature ventricular contraction) TRANSTHORACIC ECHO (TTE) COMPLETE W DOPPLER/CF W CONTRAST Routine 03/04/2025 2:51 PM [employer]CHASING AGENT PAF (paroxysmal atrial fibrillation) Essential (primary) hypertension XR CHEST PA LATERAL 2 VIEWS Schedule Routine, Read Routine (OP Routine) 02/14/2025 10:14 AM [employer]ALE PURCHASING AGENT Pre-operative exam ECG 12-LEAD Routine 02/14/2025 10:07 AM [employer]CHASING AGENT Pre-operative exam EGFR Routine 02/14/2025 9:39 AM [employer] PURCHASING AGENT Pre-operative exam URINALYSIS, MICROSCOPIC ONLY Routine 02/14/2025 9:39 AM [employer] PURCHASING AGENT Pre-operative exam DIFFERENTIAL AUTO Routine 02/14/2025 9:3 9 AM [employer]CHASING AGENT Pre-operative exam CBC WITH AUTO DIFFERENTIAL Routine 02/14/2025 9:39 AM [employer]CHASING AGENT Pre-operative exam COMPREHENSIVE METABOLIC PANEL Routine 02/14/2025 9:39 AM [employer]CHASING AGENT Pre-operative exam URINALYSIS AND REFLEX TO MICROSCOPIC AND CULTURE Routine 02/14/2025 9:39 AM [employer]CHASING AGENT Pre-operative exam from Last 3 Months Results * NM MPI SPECT (Rest and/or Stress) Multiple Studies (03/08/2025 11:17 AM MERCH[employer]ISE FOR [employer]ALE PURCHASING AGENT) Anatomical Region Laterality Modality Body N/A Electrocardiogra phy 03/08/2025 10:1 5 AM [employer] FOR [employer]ALE PURCHASING AGENT Narrative 03/08/2025 5:46 PM MERCH[employer]ISE FOR RESALE PURCHASING AGENT [facility] Cardiology [address], [place] [address] [address] [facility] [address], [place] [address] [address], [place] [address] P:[phone] P:[phone] MPI Imaging Report Patient Name: LEN IVERSON G : 1955 Study Date: 03/08/2025 10:15:00 AM Sex: M Tech: CLARI REYES Location: [facility] Provider: CHEPE FRAUSTO Height(Cm): 182.9 BSA: Weight(Kg): 104.8 Heart Rate: 126 BMI: 31.33 Order Provider: CHEPE FRAUSTO PHYSICIAN: Primary Care Physician: Dr. Lock. [facility] Physician: Davy Frausto M.D. Stress Supervision: Davy Frausto M.D. Stress Interpreting Physician: Davy Frausto M.D. PROCEDURES: Pharmacologic SPECT Report: Myocardial perfusion imaging with Tc99M Sestamibi SPECT at rest and stress post regadenoson (Lexiscan) infusion. INDICATIONS: Hypertension, Family Hx CAD, High Cholesterol, I48.0 Paroxysmal atrial fibrillation, Z01.810 Encounter for preprocedural cardiovascular examination, and I49.3 Ventricular premature depolarization. FINDINGS: Procedural Findings: One day rest/stress was used. Tc99m Sestamibi injected IV at rest was 12.9 millicuries 37.8 millicuries of Tc99M Sestamibi injected IV during Lexiscan stress Lexiscan 0.4mg administered IV over 10 seconds. Patient had no symptoms during stress test. Baseline heart rate was 57 BPM Maximum Heart Rate Achieved was: 90 BPM Baseline blood pressure was 151/70 mmHg Post Stress Blood Pressure was 112/79 mmHg Termination: Protocol complete. Resting ECG: Atrial fibrillation. PVC. Post ECG: No diagnostic ST changes. Arrhythmia: Frequent PVCs. Perfusion Findings: Abnormal perfusion imaging - see below. Technical quality of study is excellent. Left ventricle cavity size at rest is normal. Left ventricle cavity size with stress is unchanged. A TID of 0.94 was automatically calculated. defect 1: Size is large. Severity is moderate to severe in intensity. Location of defect is in the basal inferolateral segment, basal anterolateral segment, mid inferolateral segment, mid anterolateral segment and apical lateral segment. Reversibility is full. Type of defect is ischemia. defect 2: Size is small. Severity is mild. Location of defect is in the basal inferoseptal segment and mid inferoseptal segment. Reversibility is full. Type of defect is ischemia. defect 3: Size is medium. Severity is moderate. Location of defect is in the apical anterior segment, apical septal segment, apical inferior segment and apex. Reversibility is partial. Type of defect is ischemia with infarction. LV Function: Left ventricular ejection fraction is 30 %. There is severe LV dysfunction although this may be related to abnormal gating from frequent PVCs. CONCLUSIONS: Left ventricular ejection fraction is 30 %. There is severe LV dysfunction although this may be related to abnormal gating from frequent PVCs. Size is large. Severity is moderate to severe in intensity. Location of defect is in the basal inferolateral segment, basal anterolateral segment, mid inferolateral segment, mid anterolateral segment and apical lateral segment. Reversibility is full. Type of defect is ischemia. Size is small. Severity is mild. Location of defect is in the basal inferoseptal segment and mid inferoseptal segment. Reversibility is full. Type of defect is ischemia. Size is medium. Severity is moderate. Location of defect is in the apical anterior segment, apical septal segment, apical inferior segment and apex. Reversibility is partial. Type of defect is ischemia with infarction. Myocardial perfusion imaging is abnormal. Negative EKG portion of stress test. Attenuation correction utilized for the interpretation of this study. Hypotensive BP response to stress. Concern for multivessel ischemia. Electronically Signed By: Chepe Frausto MD 03/08/2025 5:27:36 PM [employer]CH[employer]ING AGENT Electronically Signed By: Chepe Frausto MD 03/08/2025 5:27:36 PM MERCH[employer]ISE FOR [employer]ALE PURCHASING AGENT Procedure Note Chepe Frausto MD - 03/08/2025 [facility] Cardiology [address] [place] [address] [address], [place], [place] [id number] [address], [place] [address] P:[phone] P:[phone] MPI Imaging Report Patient Name: GABRIELA LENAnge : 1955 Study Date: 03/08/2025 10:15:00 AM Sex: M Tech: [facility] Location: [facility] Provider: CHEPE FRAUSTO Height(Cm): 182.9 BSA: Weight(Kg): 104.8 Heart Rate: 126 BMI: 31.33 Order Provider: CHEPE FRAUSTO PHYSICIAN: Primary Care Physician: Dr. Lock. [facility] Physician: Davy Frausto M.D.Stress Supervision: Davy Frausto M.D. Stress Interpreting Physician: Stephanie Handley PROCEDURES: Pharmacologic SPECT Report: Myocardial perfusion imaging with Tc99M Sestamibi SPECT at rest and stresspost regadenoson (Lexiscan) infusion. INDICATIONS: Hypertension, Family Hx CAD, High Cholesterol, I48.0 Paroxysmal atrialfibrillation, Z01.810 Encounter for preprocedural cardiovascular examination, and I49.3Ventricular premature depolarization. FINDINGS: Procedural Findings: One day rest/stress was used. Tc99m Sestamibi injected IV at rest was 12.9 millicuries 37.8 millicuries of Tc99M Sestamibi injected IV during Lexiscan stress Lexiscan 0.4mg administered IV over 10 seconds. Patient had no symptoms during stress test. Baseline heart rate was 57 BPM Maximum Heart Rate Achieved was: 90 BPM Baseline blood pressure was 151/70 mmHg Post Stress Blood Pressure was 112/79 mmHg Termination: Protocol complete. Resting ECG: Atrial fibrillation. PVC. Post ECG: No diagnostic ST changes. Arrhythmia: Frequent PVCs. Perfusion Findings: Abnormal perfusion imaging - see below. Technical quality of study isexcellent. Left ventricle cavity size at rest is normal. Left ventricle cavity size withstress is unchanged. A TID of 0.94 was automatically calculated. defect 1: Size is large. Severity is moderate to severe in intensity. Location ofdefect is in the basal inferolateral segment, basal anterolateral segment, midinferolateral segment, mid anterolateral segment and apical lateral segment. Reversibility is full.Type of defect is ischemia. defect 2: Size is small. Severity is mild. Location of defect is in the basalinferoseptal segment and mid inferoseptal segment. Reversibility is full. Type of defect isischemia. defect 3: Size is medium. Severity is moderate. Location of defect is in the apicalanterior segment, apical septal segment, apical inferior segment and apex.Reversibility is partial. Type of defect is ischemia with infarction. LV Function: Left ventricular ejection fraction is 30 %. There is severe LV dysfunctionalthough this may be related to abnormal gating from frequent PVCs. CONCLUSIONS: Left ventricular ejection fraction is 30 %. There is severe LV dysfunctionalthough this may be related to abnormal gating from frequent PVCs. Size is large. Severity is moderate to severe in intensity. Location ofdefect is in the basal inferolateral segment, basal anterolateral segment, midinferolateral segment, mid anterolateral segment and apical lateral segment. Reversibility is full.Type of defect is ischemia. Size is small. Severity is mild. Location of defect is in the basalinferoseptal segment and mid inferoseptal segment. Reversibility is full. Type of defect isischemia. Size is medium. Severity is moderate. Location of defect is in the apicalanterior segment, apical septal segment, apical inferior segment and apex.Reversibility is partial. Type of defect is ischemia with infarction. Myocardial perfusion imaging is abnormal. Negative EKG portion of stress test. Attenuation correction utilized for the interpretation of this study. Hypotensive BP response to stress. Concern for multivessel ischemia. Electronically Signed By: Chepe Frausto MD 03/08/2025 5:27:36 PM [employer]CHASING AGENT Electronically Signed By: Chepe Frausto MD 03/08/2025 5:27:36 PM MER[employer] FOR [employer]ALE PURCHASING AGENT us Chepe Frausto MD IMG NM PROCEDURES Final R esult * TRANSTHORACIC ECHO (TTE) COMPLETE W DOPPLER/CF W CONTRAST (03/04/2025 2:51 PM MERCH[employer]ISE FOR RESALE PURCHASING AGENT) Estimated EF 60-65 % CONS SCIMAGE EF Mod BP 65 % CONS SCIMAGE Anatomical Region Laterality Modality Ultrasound 03/04/2025 1:51 PM MERCH[employer] FOR RESALE PURCHASING AGENT Narrative 03/07/2025 9:36 AM MERCH[employer]ISE FOR RESALE PURCHASING AGENT [facility] Cardiology [address] [facility] [address], [place] [address] [address] [facility] [address], [place] [address] [phone] P:[phone] Echocardiographic Report Patient Name: LEN IVERSON G : 1955 Study Date: 03/04/2025 1:51:31 PM Sex: M Embroidery Supervisor: Neda Collado)(CT), [facility] Location: [facility] Provider: CHEPE FRAUSTO Height(Cm): 183 BSA: 2.31 Weight(Kg): 104.8 Heart Rate: 60 BP: 132 / 86 Quality: Good Order Provider: CHEPE FRAUSTO PROCEDURES: Echocardiographic Report: Transthoracic echocardiogram with complete 2D, M-Mode, color Doppler examination and Definity contrast. With Strain Analysis. INDICATIONS: I48.0 Paroxysmal atrial fibrillation and I10 Essential (primary) hypertension. MEASUREMENTS: 2D/MM Value Range Doppler Value Range EF Mod BP 65 % [ 52 - 72 ] KIEL Vmax 1.89 cm2 [ 2.00 - 4.00 ] Estimated EF 60-65 % AV Mean PG 5 mmHg LV GLS -13.83 % AV Peak Car 1.52 m/s [ 1.00 - 1.70 ] LVIDd 2D 6.30 cm [ 4.20 - 5.80 ] AV Peak PG 9 mmHg LVIDs 2D 4.07 cm [ 2.50 - 4.00 ] AV VTI 36.25 cm LVPWd 2D 1.07 cm [ 0.60 - 1.00 ] LVOT Diam 2.07 cm [ 1.70 - 2.10 ] IVSd 2D 1.19 cm [ 0.60 - 1.00 ] LVOT Peak Car 0.85 m/s [ 0.70 - 1.10 ] AoR Diam 2D 3.43 cm [ 3.10 - 3.70 ] LVOT VTI 19.21 cm LA Volume 101.33 ml [ 18.00 - 58.00 ] MV E Peak Car 0.67 m/s [ 0.60 - 1.30 ] LA Volume Index 44 cc/m2 [ 16 - 28 ] MV A Peak Car 0.64 m/s [ 1.00 - 1.20 ] RA Volume 48.96 ml MV Decel Time 282 msec [ 104 - 258 ] PV Peak Car 1.32 m/s [ 0.40 - 0.80 ] TR Peak Car 2.89 m/s [ 1.00 - 2.80 ] TR Peak PG 33 mmHg RV S` 14.28 mmHg Lateral E` 0.10 m/s [ 0.10 - 0.15 ] Septal E` 0.09 m/s [ 0.08 - 0.15 ] E` 0.09 m/s E/E` 7 Tapse 2.42 cm [ 1.71 - 5.00 ] 2D/MM Value Range Doppler Value Range - FINDINGS: Interpretation Site: Exam was interpreted at [facility]. Left Ventricle: Normal left ventricular systolic function. No focal wall motion abnormalities. Definity contrast agent used to visually enhance endocardial wall motion and contractility. Lot Number: [id number]. Mild concentric left ventricular hypertrophy. Mild enlargement of left ventricle cavity. Impaired diastolic relaxation Grade I. Ejection fraction is measured at 65 %. Ejection Fraction is visually estimated to be 60-65 %. Global Longitudinal Strain is -14 %. GLS is abnormal. Apical Sparing Pattern seen with Strain Imaging, consider Cardiac Amyloid. Right Ventricle: Normal right ventricular size. Normal right ventricular systolic function. Left Atrium: There is moderate enlargement of left atrium. Right Atrium: The right atrium is normal in size. Atrial Septum: Normal atrial septum. Mitral Valve: Normal appearance of the mitral valve. Mild mitral valve regurgitation. There is no hemodynamically significant mitral stenosis by Doppler. Aortic Valve: Mild aortic stenosis. Valve area of 1.9 cm2. Aortic cusps appear mildly calcified. Trileaflet aortic valve. Trace aortic valve regurgitation. Tricuspid Valve: Normal appearance of the tricuspid valve. Mild pulmonary hypertension based on right ventricular systolic pressure. Estimated peak RVSP is 35-40 mmHg. Mild tricuspid regurgitation. Pulmonic Valve: Normal appearance of the pulmonic valve. No pulmonic stenosis. Mild pulmonic regurgitation. Pericardium: Normal pericardium with no significant pericardial effusion. Aorta: Normal aortic root. IVC: Normal size and normal respiratory collapse consistent with normal right atrial pressure (<5 mmHg). CONCLUSIONS: Normal left ventricular systolic function. No focal wall motion abnormalities. Definity contrast agent used to visually enhance endocardial wall motion and contractility. Lot Number: [id number]. Mild concentric left ventricular hypertrophy. Mild enlargement of left ventricle cavity. Impaired diastolic relaxation Grade I. Ejection fraction is measured at 65 %. Ejection Fraction is visually estimated to be 60-65 %. Global Longitudinal Strain is -14 %. GLS is abnormal. Apical Sparing Pattern seen with Strain Imaging, consider Cardiac Amyloid. There is moderate enlargement of left atrium. Mild mitral valve regurgitation. Mild aortic stenosis. Valve area of 1.9 cm2. Aortic cusps appear mildly calcified. Trileaflet aortic valve. Trace aortic valve regurgitation. Mild pulmonary hypertension based on right ventricular systolic pressure. Estimated peak RVSP is 35-40 mmHg. Mild tricuspid regurgitation. Mild pulmonic regurgitation. Normal sinus rhythm. Electronically Signed By: Chepe Frausto MD 03/07/2025 9:36:03 AM MER[employer]ISE [employer] PURCHASING AGENT Procedure Note Chepe Frausto MD - 03/07/2025 [facility] Medical [facility] Cardiology [address] [facility] [address], [place] [address] [address] [facility] [address] [address] [phone] P:[phone] Echocardiographic Report Patient Name: LEN IVERSON G : 1955 Study Date: 03/04/2025 1:51:31 PM Sex: M Embroidery Supervisor: Neda Collado)(CT), [facility] Location: [facility] Ref Provider: CHEPE FRAUSTO Height(Cm): 183 BSA: 2.31 Weight(Kg): 104.8 Heart Rate: 60 BP: 132 / 86 Quality: Good Order Provider: CHEPE FRAUSTO PROCEDURES: Echocardiographic Report: Transthoracic echocardiogram with complete 2D, M-Mode, color Dopplerexamination and Definity contrast. With Strain Analysis. INDICATIONS: I48.0 Paroxysmal atrial fibrillation and I10 Essential (primary)hypertension. MEASUREMENTS: 2D/MM Value Range DopplerValue Range EF Mod BP 65 % [ 52 - 72 ] KIEL Vmax 1.89cm2 [ 2.00 - 4.00 ] Estimated EF 60-65 % AV Mean PG 5mmHg LV GLS -13.83 % AV Peak Car 1.52m/s [ 1.00 - 1.70 ] LVIDd 2D 6.30 cm [ 4.20 - 5.80 ] AV Peak PG 9mmHg LVIDs 2D 4.07 cm [ 2.50 - 4.00 ] AV VTI36.25 cm LVPWd 2D 1.07 cm [ 0.60 - 1.00 ] LVOT Diam 2.07cm [ 1.70 - 2.10 ] IVSd 2D 1.19 cm [ 0.60 - 1.00 ] LVOT Peak Car 0.85m/s [ 0.70 - 1.10 ] AoR Diam 2D 3.43 cm [ 3.10 - 3.70 ] LVOT VTI19.21 cm LA Volume 101.33 ml [ 18.00 - 58.00 ] MV E Peak Car 0.67m/s [ 0.60 - 1.30 ] LA Volume Index 44 cc/m2 [ 16 - 28 ] MV A Peak Car 0.64m/s [ 1.00 - 1.20 ] RA Volume 48.96 ml MV Decel Time 282msec [ 104 - 258 ] PV Peak Car 1.32 m/s [ 0.40 - 0.80 ] TR Peak Car 2.89 m/s [ 1.00 - 2.80 ] TR Peak PG 33 mmHg RV S` 14.28 mmHg Lateral E` 0.10 m/s [ 0.10 - 0.15 ] Septal E` 0.09 m/s [ 0.08 - 0.15 ] E` 0.09 m/s E/E` 7 Tapse 2.42 cm [ 1.71 - 5.00 ] 2D/MM Value Range DopplerValue Range - FINDINGS: Interpretation Site: Exam was interpreted at [facility]. Left Ventricle: Normal left ventricular systolic function. No focal wall motionabnormalities. Definity contrast agent used to visually enhance endocardial wall motion andcontractility. Lot Number: [id number]. Mild concentric left ventricular hypertrophy. Mildenlargement of left ventricle cavity. Impaired diastolic relaxation Grade I. Ejection fractionis measured at 65 %. Ejection Fraction is visually estimated to be 60-65 %. GlobalLongitudinal Strain is -14 %. GLS is abnormal. Apical Sparing Pattern seen with StrainImaging, consider Cardiac Amyloid. Right Ventricle: Normal right ventricular size. Normal right ventricular systolicfunction. Left Atrium: There is moderate enlargement of left atrium. Right Atrium: The right atrium is normal in size. Atrial Septum: Normal atrial septum. Mitral Valve: Normal appearance of the mitral valve. Mild mitral valve regurgitation.There is no hemodynamically significant mitral stenosis by Doppler. Aortic Valve: Mild aortic stenosis. Valve area of 1.9 cm2. Aortic cusps appear mildlycalcified. Trileaflet aortic valve. Trace aortic valve regurgitation. Tricuspid Valve: Normal appearance of the tricuspid valve. Mild pulmonary hypertensionbased on right ventricular systolic pressure. Estimated peak RVSP is 35-40 mmHg. Mildtricuspid regurgitation. Pulmonic Valve: Normal appearance of the pulmonic valve. No pulmonic stenosis. Mildpulmonic regurgitation. Pericardium: Normal pericardium with no significant pericardial effusion. Aorta: Normal aortic root. IVC: Normal size and normal respiratory collapse consistent with normal rightatrial pressure (<5 mmHg). CONCLUSIONS: Normal left ventricular systolic function. No focal wall motionabnormalities. Definity contrast agent used to visually enhance endocardial wall motion andcontractility. Lot Number: [id number]. Mild concentric left ventricular hypertrophy. Mildenlargement of left ventricle cavity. Impaired diastolic relaxation Grade I. Ejection fractionis measured at 65 %. Ejection Fraction is visually estimated to be 60-65 %. GlobalLongitudinal Strain is -14 %. GLS is abnormal. Apical Sparing Pattern seen with StrainImaging, consider Cardiac Amyloid. There is moderate enlargement of left atrium. Mild mitral valve regurgitation. Mild aortic stenosis. Valve area of 1.9 cm2. Aortic cusps appear mildlycalcified. Trileaflet aortic valve. Trace aortic valve regurgitation. Mild pulmonary hypertension based on right ventricular systolic pressure.Estimated peak RVSP is 35-40 mmHg. Mild tricuspid regurgitation. Mild pulmonic regurgitation. Normal sinus rhythm. Electronically Signed By: Chepe Frausto MD 03/07/2025 9:36:03 AM MERCH[employer]ISE FOR [employer] PURCHASING AGENT us Chepe Frausto MD CV ECHO PROCEDURES Final Result * XR Chest Pa Lateral 2 Views (02/14/2025 10:14 AM MERCH[employer] FOR [employer] PURCHASING AGENT) Anatomical Region Laterality Modality Body, Chest N/A Radio Fluoroscop y 02/14/2025 11:5 7 AM [employer]CH[employer]ING AGENT Impressions 02/14/2025 11:57 AM [employer]CH[employer]ING AGENT 1. Minimal discoid atelectasis or scarring in the lingula. Electronically signed by: Sonido Burgess M.D. Narrative 02/14/2025 11:57 AM [employer]CH[employer]ING AGENT EXAM DESCRIPTION: XR CHEST PA LATERAL 2 VIEWS REASON FOR STUDY: Preoperative evaluation for left knee replacement. TECHNIQUE: PA and lateral radiographic views of the chest COMPARISON: None FINDINGS: LUNGS/PLEURAE: Minimal discoid atelectasis or scarring in the lingula. No concerning focal consolidation or pleural effusion. There is no pneumothorax. HEART/MEDIASTINUM: Heart size is normal. Normal mediastinal and hilar contours. HARDWARE/LINES/TUBES: None. BONES: Mild thoracic spondylosis. Procedure Note Sonido Burgess MD - 02/14/2025 EXAM DESCRIPTION: XR CHEST PA LATERAL 2 VIEWS REASON FOR STUDY: Preoperative evaluation for left knee replacement. TECHNIQUE: PA and lateral radiographic views of the chest COMPARISON: None FINDINGS: LUNGS/PLEURAE: Minimal discoid atelectasis or scarring in the lingula. No concerning focal consolidation or pleural effusion. There is no pneumothorax. HEART/MEDIASTINUM: Heart size is normal. Normal mediastinal and hilar contours. HARDWARE/LINES/TUBES: None. BONES: Mild thoracic spondylosis. IMPRESSION: 1. Minimal discoid atelectasis or scarring in the lingula. Electronically signed by: Sonido Burgess M.D. Rajinder Whittaker MD IMG XR PROCEDURES Final Resu lt * ECG 12 lead (02/14/2025 10:07 AM [employer] PURCHASING AGENT) 02/14/2025 10:0 4 AM [employer] FOR [employer] PURCH[employer]ING AGENT Narrative [facility] - 02/14/2025 3:50 PM [employer]CH[employer]ING [employer]ENT Vent Rate: 56 bpm RR Interval: 1058 msec MT Interval: 0 msec QRS Duration: 93 msec QT Interval: 397 msec QTC Interval: 389 msec P-R-T [place]: [id number] - -19 - 3 degrees IMPRESSION: ATRIAL FIBRILLATION WITH SLOW VENTRICULAR RESPONSE WITH ABERRANT CONDUCTION OR VENTRICULAR PREMATURE COMPLEXES MINIMAL VOLTAGE CRITERIA FOR LVH, CONSIDER NORMAL VARIANT [MEETS CRITERIA IN ONE OF: R(aVL), S(V1), R(V5), R(V5/V6)+S(V1)] ABNORMAL RHYTHM ECG Electronically Signed By: Hossein Temple MD Rajinder Whittaker MD ECG ORDERABLES Final Result [facility] * eGFR (02/14/2025 9:39 AM MER[employer]CHASING AGENT) eGFR 87 >=60 mL/min/1. 73 m2 Comment: Interpretive Data Reference Interval Normal >/= 90 mL/min/1.73m2 Mildly decreased* 60 - 89 mL/min/1.73m2 Mildly to moderately decreased 45 - 59 mL/min/1.73m2 Moderately to severely decreased 30 - 44 mL/min/1.73m2 Severely decreased 15 - 29 mL/min/1.73m2 Kidney Failure < 15 mL/min/1.73m2 *Relative to young adult level Estimated glomerular filtration rate is determined by the 2020 CKD-EPI equation recommended by the National Kidney Foundation (A Unifying Approach to GFR Estimation: Recommendations of the NKF-ASK Task Force on Reassessing the Inclusion of Race in Diagnosing Kidney Disease, JASN 2020). The CKD-EPI equation should not be used for patients with unstable renal function and has not been validated in children and those over 70. Current interpretive data was last reviewed 2021. Blood 02/14/2025 9:39 AM [employer]CH[employer]ING AGENT 02/14/2025 10:00 AM [employer] FOR [employer] PURCHASING AGENT us Rajinder Whittaker MD LAB BLOOD ORDERABLES Final R esult [facility] ([place]) [facility] Department [place] [address] * (ABNORMAL) Differential, auto (02/14/2025 9:39 AM [employer]CH[employer]ING AGENT) Neutrophil abs 4.38 1.50 - 6.50 K/cumm Imm gran abs 0.02 0.00 - 0.10 K/cumm [facility] ([place]) Lymphocyte abs 2.01 0.80 - 3.30 K/cumm [facility] ([place]) Monocyte abs 0.92(H) 0.20 - 0.80 K/cumm [facility] ([place]) Eosinophil abs 0.37 0.00 - 0.50 K/cumm [facility] ([place]) Basophil abs 0.04 0.00 - 0.10 K/cumm [facility] ([place]) Neutrophil pct 56.5 % [facility] ([place]) Comment: Interpretive Data Percent cell count reference ranges are not reported, since discordance with absolute values may lead to misinterpretation of CBC data. Current Interpretive Data was last revised on 2017. Imm gran pct 0.3 % [facility] ([place]) Comment: Interpretive Data Percent cell count reference ranges are not reported, since discordance with absolute values may lead to misinterpretation of CBC data. Current Interpretive Data was last revised on 2017. Lymphocyte pct 26.0 % [facility] ([place]) Comment: Interpretive Data Percent cell count reference ranges are not reported, since discordance with absolute values may lead to misinterpretation of CBC data. Current Interpretive Data was last revised on 2017. Monocyte pct 11.9 % [facility] ([place]) Comment: Interpretive Data Percent cell count reference ranges are not reported, since discordance with absolute values may lead to misinterpretation of CBC data. Current Interpretive Data was last revised on 2017. Eosinophil pct 4.8 % [facility] ([place]) Comment: Interpretive Data Percent cell count reference ranges are not reported, since discordance with absolute values may lead to misinterpretation of CBC data. Current Interpretive Data was last revised on 2017. Basophil pct 0.5 % [facility] ([place]) Comment: Interpretive Data Percent cell count reference ranges are not reported, since discordance with absolute values may lead to misinterpretation of CBC data. Current Interpretive Data was last revised on 2017. Blood 02/14/2025 9:39 AM [employer]CH[employer]ING AGENT 02/14/2025 10:00 AM [employer] PURCH[employer]ING AGENT us Rajinder Whittaker MD LAB BLOOD ORDERABLES Final R esult [facility] ([place]) [facility] Department of Laboratories [place] [id number] * (ABNORMAL) Urinalysis reflex to microscopic and culture Urine (02/14/2025 9:39 AM [employer]CH[employer]ING AGENT) Color, ur Yellow Yellow Clarity, ur Clear Clear [facility] ([place]) Specific gravity, ur 1.020 1.003 - 1.030 [facility] ([place]) pH, urine 5.0 [facility] ([place]) Comment: Interpretive Data U rine pH is affected by diet, medications, systemic acid-base disturbances, and renal tubular function. pH may affect urinary stone formation. For example, urine pH below 6.0 may help reduce the tendency for calcium phosphate stones and pH greater than 6.0 may reduce the tendency for uric acid stone formation. Source: [facility] Membranes Current Interpretive Data was last revised on 2017 Protein, ur ql Negative Negative [facility] ([place]) Glucose, ur ql Negative Negative [facility] ([place]) Ketones, ur Negative Negative [facility] ([place]) Bilirubin, ur Negative Negative [facility] ([place]) Blood, ur Trace(A) Negative [facility] ([place]) Urobilinogen, ur <2.0 <2.0 mg/dL [facility] ([place]) Nitrite, ur Negative Negative [facility] ([place]) Leukocyte esterase, ur 1+(A) Negative [facility] ([place]) UA reflex comment Reflex to microscopic UA will be performed. [facility] ([place]) Urine 02/14/2025 9:39 AM [employer]CH[employer]ING AGENT 02/14/2025 9:59 AM MER[employer] FOR [employer] PURCHASING AGENT us Rajinder Whittaker MD LAB MICROBIOLOGY - GENERAL O RDERABLES Final Result [facility] ([place]) [facility] Department [place] [address] * CBC with auto differential (02/14/2025 9:39 AM [employer]CHASING AGENT) WBC 7.74 3.80 - 9.90 K/cumm Hgb 15.9 13.0 - 17.5 g/dL [facility] ([place]) Hct 47.3 38.9 - 50.3 % [facility] ([place]) Plt 240 150 - 400 K/cumm [facility] ([place]) MPV 10.0 9.1 - 12.3 fL [facility] ([place]) RBC 5.08 4.30 - 5.80 M/cumm [facility] ([place]) MCV 93.1 81.3 - 96.4 fL [facility] ([place]) MCH 31.3 27.1 - 33.3 pg [facility] ([place]) MCHC 33.6 32.3 - 35.7 g/dL [facility] ([place]) RDW CV 12.4 11.1 - 14.9 % [facility] ([place]) RDW SD 42.7 35.7 - 48.1 fL [facility] ([place]) NRBC abs 0.00 0.00 - 0.01 K/cumm [facility] ([place]) Blood 02/14/2025 9:39 AM [employer]CHASING AGENT 02/14/2025 10:00 AM [employer] FOR [employer]ALE PURCHASING AGENT Raijnder Whittaker MD LAB BLOOD ORDERABLES Final R [facility] Performing Organization Address [facility] Co de Phone Number [facility] ([place]) 1 [facility] [place] [address] * (ABNORMAL) Urinalysis, microscopic only (02/14/2025 9:39 AM MERCH[employer] FOR [employer]ALE PURCHASING AGENT) WBC, ur 0-5 0 - 5 /HPF RBC, ur 0-2 0 - 2 /HPF [facility] ([place]) Mucous, ur Present(A) [facility] ([place]) Culture Reflex Comment Reflex conditions for urine culture (WBC >10) not met. [facility] ([place]) Urine 02/14/2025 9:39 AM MER[employer]ALE PURCHASING AGENT 02/14/2025 9:59 AM MER[employer] FOR [employer]ALE PURCHASING AGENT Rajinder Whittaker MD LAB URINE ORDERABLES Final R [facility] Performing Organization Address [facility] Co de Phone Number [facility] ([place]) 1 [facility] [place] [address] * Comprehensive metabolic panel (02/14/2025 9:39 AM MERCH[employer] FOR [employer]ALE PURCHASING AGENT) Sodium 139 135 - 145 mmol/L Potassium, pl 4.4 3.3 - 4.9 mmol/L [facility] ([place]) Chloride 105 97 - 110 mmol/L [facility] ([place]) CO2 26 22 - 32 mmol/L [facility] ([place]) Anion gap 8 2 - 15 mmol/L [facility] ([place]) BUN 18 6 - 25 mg/dL [facility] ([place]) Creatinine 0.93 0.80 - 1.30 mg/dL [facility] ([place]) Glucose 96 70 - 199 mg/dL [facility] ([place]) Comment: Interpretive Data Fasting glucose >/= 126 mg/dl is diagnostic for diabetes. Fasting is defined as no caloric intake for at least 8 hours. Fasting glucose between 100 mg/dl to 125 mg/dl is diagnostic of prediabetes. In a patient with classic symptoms of hyperglycemia or hyperglycemic crisis, a random glucose >/= 200 mg/dl is diagnostic for diabetes. In the absence of unequivocal hyperglycemia, results should be confirmed by repeat testing. The classification and Diagnosis of Diabetes Diabetes Care 2021; 46: S19-S40. Current interpretive data was last revised 2022. Calcium 9.6 8.5 - 10.3 mg/dL [facility] ([place]) Bilirubin, total 0.8 0.1 - 1.2 mg/dL [facility] ([place]) Protein, pl 7.3 6.5 - 8.5 g/dL [facility] ([place]) Albumin 4.4 3.5 - 5.0 g/dL [facility] ([place]) Alk phos 85 40 - 130 Units/L [facility] ([place]) ALT 12 7 - 55 Units/L [facility] ([place]) AST 20 10 - 50 Units/L [facility] ([place]) Blood 02/14/2025 9:39 AM [employer] PURCHASING AGENT 02/14/2025 10:00 AM MER[employer] FOR [employer] PURCHASING AGENT us Rajinder Whittaker MD LAB BLOOD ORDERABLES Final R esult [facility] ([place]) [facility] Department [place] [address] from Last 3 Months Insurance [facility] MEDICARE AETNA MEDICARE AET MEDICARE Care Teams Optometric Technologist Relationship Specialty Start Date End Date Cristofer Lock MD [address] [place] [address] PCP - General Internal Medicine 12/25/22 Len Chiu MD Consulting Physician Plastic Surgery 10/10/20 Alex Kruse, OT Occupational Therapist Occupational Therapy 03/02/25
--- OUTSIDE RECORDS SUMMARY | 2025-03-24 01:18 | XMS_ITS | Encounter Summary ---
Author Organization [facility] Address [address] [facility] [place] [address] Care Team Providers Care Electrician Technician Name Role Phone Cristofer Lock MD Primary Care Provider [phone] Encounter Details Date Type Department Care Team (Late st Contact Info) Description 12/05/2023 Lab Requisition [facility] - DermPath Lab [address] [place] [id number] William Moreno MD [facility] DERMATOLOGY [address] [place] [phone] Neoplasm of uncertain behavior of skin [...] AM CDT) Case Report Dermatopathology Report Case: [id number] Authorizing Provider: William Moreno MD Collected: 12/05/2023 12:00 AM Ordering Location: [facility] - Received: 12/08/2023 10:57 AM [...] specimen consists of a shave biopsy measuring 37s32x7 mm. Jar 0. 1:04 PM CDT DERMATOPATHOLOGY [...] characteristic determined by the Dermatopathology Laboratory at [facility], directed by Dr. Rebekah Peters. These tests need not be, and therefore are not, approved by the [place] Food and Drug Administration. The tests are used for clinical purposes. Billing Codes Specimen Charges Stain Charges 44632 97414 1 1 1:04 PM CDT DERMATOPATHOLOGY LABORATORY Embedded Images 1:04 PM CDT DERMATOPATHOLOGY LABORATORY Pathology/Cytology TISSUE SPECIMEN FROM SKIN / Unknown 12/05/2023 12/08/2023 10:57 AM CDT Miscellaneous samples (specimen) TISSUE SPECIMEN FROM SKIN / Unknown 12/05/2023 12/08/2023 10:57 AM CDT us William Moreno MD LAB - PATHOLOGY/CYTOLOGY AMYE RICHIE Final Result DERMATOPATHOLOGY LABORATORY [facility] - Department of Dermatology [facility] [address] [place] [address], [address] [phone] documented in this encounter Visit Diagnoses Diagnosis Neoplasm of uncertain behavior of skin documented in this encounter Care Teams Electrician Technician Relationship Specialty Start Date End Date Cristofer Lock MD [facility] [address] [phone] PCP - General 08/14/22 documented as of this encounter
[2025-03-24 07:41] LABS: Hematocrit 47.3 % (42.0-52.0); Hemoglobin 15.7 g/dL (14.0-18.0); Immature Granulocyte Percent A 0.2 % (0-0.5); Lymphocytes Absolute Auto 1.77 K/mm3 (0.9-3.2); Mean Corpuscular HGB Conc 33.2 g/dl (32-36); Mean Corpuscular Hemoglobin 31.4 pg (26-34); Mean Corpuscular Volume 94.6 fl (80-100); Nucleated Red Blood Cells Absolute Auto 0.000 K/mm3 (0.0-0.012); Nucleated Red Blood Cells Perc 0.0 % (0.0-0.2); Platelet Count Result 210 k/mm3 (150-375); Red Blood Count 5.00 M/mm3 (4.6-6.20); White Blood Count 6.3 K/mm3 (4.5-10.0)
[2025-03-24 08:06] LABS: Anion Gap 5 mmol/L (4-12); Blood Urea Nitrogen 28 mg/dL (9-20); Calcium 8.7 mg/dL (8.4-10.2); Carbon Dioxide 25 mmol/L (22-30); Chloride 106 mmol/L (98-107); Estimated CRCL calculation 64 ml/min; Estimated Glomerular Filt Rate > 60; Glucose 104 mg/dL (65-110); Potassium 4.4 mmol/L (3.4-5.0); Sodium 136 mmol/L (137-145)
--- NOTE | 2025-03-24 08:25 | WPDHPUPDATE1 ---
History and Physical Update Update Date/Time: 03/24/25 08:25 History and Physical has been reviewed, including an updated exam of the patient. There are NO changes in the patient's condition. Risks, benefits, and alternatives have been discussed and questions answered. Patient agrees to proceed with procedure.
--- NOTE | 2025-03-24 08:25 | WPDMODSED ---
Moderate Sedation Note-Pt Data Patient Data Allergies Allergy/AdvReac Type Severity Reaction Status Date / Time No Known Allergies Allergy Verified 03/23/25 10:25 Home Medications ?Medication ?Instructions ?Recorded ?Confirmed ?Type lisinopril 20 mg tablet 20 mg PO DAILY 07/18/22 03/24/25 History aspirin 325 mg tablet 325 mg PO DAILY 03/23/25 03/23/25 History rosuvastatin 10 mg tablet 10 mg PO DAILY 03/23/25 03/24/25 History Sedation/Anesthesia: No previous sedation/anesthesia problems (including family history). [facility] Social History Social History Smoking status: Never smoker Second hand tobacco smoke exposure: No Alcohol intake: never Alcohol use details: 2 drinks wine monthly Substance use: never Substance use type: does not use Living arrangements: with family Spiritual care concerns: No Mod Sed Physical Exam Physical Exam Pre Procedural Exam: Normal: Lungs, Heart Size, Heart Rate and Heart Rhythm Hours since solid foods: 12 Hours since liquid intake: 12 Mallampati Classification: class II Internal Medicine - PN: Obj Da Vital Signs Vital Signs: Vital Signs - 24 hr 03/24/25 07:33 Temperature 36.1 C L Pulse Rate 70 Respiratory Rate 16 Blood Pressure 133/74 Pulse Oximetry 98 Oxygen Delivery Room Air Labs 03/24/25 07:28 03/24/25 07:28 Labs: Laboratory Results - last 24 hr 03/24/25 07:28 WBC 6.3 RBC 5.00 Hgb 15.7 Hct 47.3 MCV 94.6 MCH 31.4 MCHC 33.2 RDW 12.3 Plt Count 210 MPV 9.9 Immature Gran % (Auto) 0.2 Neut % (Auto) 54.3 Lymph % (Auto) 28.1 [place] % (Auto) 12.5 H Eos % (Auto) 4.3 Baso % (Auto) 0.6 Lymph # (Auto) 1.77 [place] # (Auto) 0.8 H Eos # (Auto) 0.3 Baso # (Auto) 0.0 Abs Immat Gran (auto) 0.01 Absolute Neuts (auto) 3.4 Absolute Nucleated RBC 0.000 Nucleated RBC % 0.0 Sodium 136 L Potassium 4.4 Chloride 106 Carbon Dioxide 25 Anion Gap 5 BUN 28 H Creatinine 1.02 Estim Creat Clear Calc 64 Estimated GFR > 60 Glucose 104 Calcium 8.7 ASA Classification/Sedation ASA Classification/Sedation ASA Class: III Emergent: No Risks: Risks, benefits and alternatives explained and patient/family accepted plan for sedation. Patient re-evaluated immediately prior to sedation.
--- NOTE | 2025-03-24 09:02 | WPDCARDPROC ---
Cardiac Cath Procedure Note Date of procedure:: 03/24/25 Performing physician:: CATHETERIZATION LABORATORY REPORT Procedure Date: 03/24/2025 Referring Physician: Dr. Rosado Anesthesia: Versed and Fentanyl were ordered and given in my presence at 0839, procedure ended at 0858. Supervision of nurse, Peace Nunez monitored moderate sedation with 2mg Versed and 150mcg Fentanyl was provided for 19 minutes. Pre-op Diagnosis: Abnormal stress test Post-op Diagnosis: Abnormal stress test Procedure(s): Left heart catheterization with coronary angiography Access Site: Right radial artery Brief History and Clinical Indications: All risks, benefits and alternatives to left heart catheterization with or without percutaneous coronary intervention was discussed at length with the patient. Risk of complications including but not limited to bleeding, infection, arrhythmia, stroke, worsening kidney function, blood loss, groin hematoma, limb loss, emergency coronary artery bypass grafting, and even were discussed with the patient and all questions were answered. The patient understood and wished to proceed. Time out called, patient name, date of , medical record number, allergies, procedure performed, identify Quantitative Associate, patient and staff member concurred with accurate data, procedure carried on. Findings: LEFT HEART CATHETERIZATION FINDINGS: 1. Left main: The left main coronary artery is widely patent without any significant obstructive disease. 2. Left anterior descending: The LAD and the diagonal branches have mild luminal irregularities without any significant obstructive angiographic disease. 3. Left circumflex: The left circumflex artery and the main marginal branches have mild luminal irregularities without any significant obstructive angiographic disease. 4. Right coronary artery: The RCA has mild luminal irregularities without any significant obstructive angiographic disease. The RCA is the dominant vessel. 5. Left ventricle: A. End-diastolic pressure 22 mmHg. B. LV gram deferred. C. No significant gradient across aortic valve on catheter pullback. 6. Opening AO pressure 108/66 and closing AO pressure 142/80 7. Right iliofemoral angiogram: No significant angiographic stenosis in the visualized portions of the right iliac and femoral arteries. Description of Procedure: Informed consent signed and placed in the chart. Patient transferred to dental laboratory technician apprentice room. Prepped and draped in usual sterile fashion. 2% lidocaine was subcutaneously injected in the right wrist. Under ultrasound guidance, the right radial artery was accessed and as the micro wire was advanced into the forearm, there was some resistance and the decision was made to convert to femoral approach. 2% lidocaine in right groin area. Micropuncture needle used to access right common femoral artery with Seldinger technique under ultrasound and fluoroscopic guidance. J wire advanced, micropuncture cannula placed. JL4 diagnostic catheter engaged Left Main Coronary Artery. JR4 diagnostic catheter crossed the aortic valve to obtain LVEDP and after pull back gradients across the aortic valve was performed, the catheter was used to engage the Right Coronary Artery. Multiple orthogonal angiogram obtained and reviewed Hemostasis was achieved by Angioseal Assessment: Luminal irregularities. Post Operative Condition: Stable No significant blood loss Disposition: Home Plan: The above findings were discussed with the referring physician. Continue aggressive medical therapy and risk factor modification. Trent Sloan Interventional Cardiology
[2025-03-24] MEDS: SODIUM CHLORIDE 0.9% IV 1,000 ML 125 ML IV CONT (09:40)
== END 2025-03-24 14:15 | disposition home or self-care (01) ==
PROVIDERS: PCP Internal Medicine; Visit Provider Internal Medicine
PROC: 4A023N7 Measurement of Cardiac Sampling and Pressure, Left Heart, Percutaneous Approach (ICD-10-PCS; CPT 93452; principal; 2025-03-24 08:30)
DX: R94.39 Abnormal result of other cardiovascular function study (principal)
CPT/HCPCS: 36415; 80048; 85025; 93458; C1760; C1769; C1887; C1894; G0269; J1644; J2003; J2250; J2305; J3010; J7030; J7040